=== PATIENT | male | born 1980 | race African-American/Black ===

== ENCOUNTER 2016-08-22 09:08 | Emergency (ER) | payer OTHER ==
[~2016-08-22] VITALS: Ht 175.3 cm; Wt 99.1 kg
[~2016-08-22 09:08] MED LIST: AMBIEN10 MG PO; ERYTHROMYCIN O3.5 GM BOTH EYES; INDOCIN50 MG PO; KEFLEX500 MG PO; LAMISIL125 ML TP; MOTRIN800 MG PO; NAPROSYN500 MG PO; NO HOME MED; NO HOME MEDS; NOHOMEMEDS; PEN-VEE K,VEET500 MG PO; THIAMINE HCL100 MG PO; ULTRAM50 MG PO; ZOFRAN4 MG PO
[2016-08-22 10:35] VITALS: BP 136/74
== END 2016-08-22 10:35 | disposition home or self-care (01) ==
LOC: EME 09:08
DX: H00.016 Hordeolum externum left eye, unspecified eyelid (principal); R45.4 Irritability and anger
CPT/HCPCS: 99281; 99283

== ENCOUNTER 2016-11-24 02:56 | Emergency (ER) | payer OTHER ==
[~2016-11-24] VITALS: Ht 175.3 cm; Wt 93.7 kg
[2016-11-24 04:19] VITALS: BP 146/98
== END 2016-11-24 04:20 | disposition left against medical advice (07) ==
LOC: EME 02:56
DX: F10.129 Alcohol abuse with intoxication, unspecified (principal); F19.10 Other psychoactive substance abuse, uncomplicated; F17.200 Nicotine dependence, unspecified, uncomplicated; Z88.6 Allergy status to analgesic agent
CPT/HCPCS: 99281; 99283

== ENCOUNTER 2017-06-28 20:16 | Emergency (ER) | payer OTHER ==
[~2017-06-28] VITALS: Ht 175.3 cm; Wt 92.9 kg
[2017-06-28 21:34] VITALS: BP 157/78
== END 2017-06-28 21:35 | disposition home or self-care (01) ==
LOC: RME 20:16 → EME 20:16 → RME 21:35
DX: B34.9 Viral infection, unspecified (principal); M79.1 Myalgia; R53.1 Weakness; J45.909 Unspecified asthma, uncomplicated; F17.200 Nicotine dependence, unspecified, uncomplicated; Z88.5 Allergy status to narcotic agent
CPT/HCPCS: 99281; 99283

== ENCOUNTER 2017-10-18 22:00 | Emergency (ER) | payer OTHER ==
[~2017-10-18] VITALS: Ht 172.7 cm; Wt 92.4 kg
[2017-10-18 22:22] LABS: APPEARANCE SL.HAZY ((CLEAR)); BILIRUBIN NEGATIVE; BLOOD LARGE; GLUCOSE (STRIP) NEGATIVE; KETONES NEGATIVE; LEUKOCYTES SMALL; NITRITE POSITIVE; PROTEIN (STRIP) 100
[2017-10-18 22:24] LABS: COLOR DK YELLOW ((YELLOW))
[2017-10-18 22:33] LABS: HEMATOCRIT 37.5 % (38.0-50.0); HEMOGLOBIN 12.8 G/DL (12.5-16.6); MCH 31.4 PG (29.0-34.0); MCHC 34.1 G/DL (30.0-36.0); MCV 91.9 FL (86-99); RBC DIS.WIDTH-SD 43.7 % (39-53); RED BLOOD COUNT 4.08 M/uL (4.00-5.50); WHITE BLOOD COUNT 8.1 K/uL (4.1-10.2)
[2017-10-18 22:39] LABS: BACTERIA RARE /HPF; EPITHELIAL CELLS RARE /HPF; MUCUS NONE SEEN /LPF; RED BLOOD CELLS TNTC /HPF (0-5); UCUL ADDED? YES; WHITE BLOOD CELLS TNTC /HPF (0-5)
[2017-10-18 22:45] LABS: CHLORIDE 102 mEq/L (99-109); POTASSIUM 4.2 mEq/L (3.7-5.4); SODIUM 138 mEq/L (136-147)
[2017-10-18 22:46] LABS: GLUCOSE 76 mg/dL (70-99); TOTAL PROTEIN 7.5 g/dL (6.4-8.3)
[2017-10-18 22:48] LABS: TOTAL BILIRUBIN 0.1 mg/dL (0.0-1.0)
[2017-10-18 22:49] LABS: ALKALINE PHOSPHATASE 82 IU/L (3-129)
[2017-10-18 22:50] LABS: GFR ESTIMATE (CALCULATED) > 59 mL/min/ (58.99-99999)
[2017-10-18 22:51] LABS: AST (GOT) 20 IU/L (2-34); UREA NITROGEN (BUN) 10 mg/dL (9-23)
[2017-10-18 22:52] LABS: ALT (GPT) 15 IU/L (3-49)
[2017-10-18 23:13] LABS: SOURCE URINE
[2017-10-18] MEDS ORDERED: CIPRO500 MG PO (23:41)
[2017-10-18 23:57] LABS: PLAT.SUFFICIENCY ADEQUATE; PLATELET COUNT 269 K/uL (156-360)
[2017-10-19 00:01] VITALS: BP 130/88
[2017-10-20 13:49] LABS: CHLAMYDIA TRACHOMATIS NEGATIVE; NEISSERIA GONORRHOEAE NEGATIVE
== END 2017-10-19 00:01 | disposition home or self-care (01) ==
LOC: EME 22:00
PROVIDERS: Nurse Practitioner Family
DX: N39.0 Urinary tract infection, site not specified (principal); B96.20 Unspecified Escherichia coli [E. coli] as the cause of diseases classified elsewhere; J45.909 Unspecified asthma, uncomplicated; F17.200 Nicotine dependence, unspecified, uncomplicated; Z88.5 Allergy status to narcotic agent
CPT/HCPCS: 80053; 81003; 85027; 87077; 87086; 87186; 87491; 87591; 99281; 99284